=== PATIENT | male | born 1930 | race Caucasian/White ===

== ENCOUNTER 2020-09-02 17:37 | Inpatient (IN) | payer MEDICARE ==
[~2020-09-02 17:37] MED LIST: Iopamidol-370 76% 500 ML 1 ML ONE
[2020-09-02 18:26] LABS: Actual Bicarbonate (HCO3v) 22 mEq/L (22-28); Analyzer IN Cardio ER; Base Excess -0.2 mEq/L (-2.0 to +3.0); Calcium, Ionized (venous) 0.99 mmol/L (1.16-1.32); Chloride (VBG) 93 mmol/L (98-106); Hemoglobin (Hb) 15.8 g/dL (12.6-17.4); pH (venous) 7.49 (7.32-7.43)
[2020-09-02 18:29] LABS: #Basophils 0.1 thou/uL (0.0-0.2); #Lymphocytes 0.2 thou/uL (1.20-3.40); #Monocytes 0.6 thou/uL (0.11-0.59); %Basophils 1.3 % (0.0-1.0); %Eosinophils 0.1 % (0.0-10.0); %Lymphocytes 1.9 % (21.0-51.0); %Monocytes 5.2 % (0.0-10.0); %Neutrophils 91.5 % (42.0-75.0); Hemoglobin 14.9 g/dL (14.0-18.0); Mean Corpuscular HGB CONC 33.5 g/dL (32.0-36.0); Mean Corpuscular Hemoglobin 30.6 pg (27.0-31.0); Mean Corpuscular Volume 91.4 fL (78.0-98.0); Mean Platelet Volume 6.7 fL (7.4-10.4); Platelet Count 174 thou/uL (130-400); RBC Distribution Width 12.5 % (11.5-14.5); Red Blood Cell (RBC) Count 4.85 mill/uL (4.70-6.10)
[2020-09-02 18:36] LABS: INR-International Normal Ratio 1.3; Prothrombin Time 16.7 sec (12.0-14.7)
[2020-09-02 18:50] LABS: ALT (SGPT) 14 U/L (8-55); AST (SGOT) 23 U/L (5-34); Albumin 3.5 g/dL (3.4-4.8); Alkaline Phosphatase 56 U/L (40-110); Anion Gap 16 mmol/L (10-20); BUN (Urea Nitrogen) 24 mg/dL (8.4-25.7); Bilirubin, Total 1.7 mg/dL (0.2-1.2); Calc. Creatinine Clearance 0 mL/min (70-130); Calcium 8.1 mg/dL (7.8-10.44); Carbon Dioxide 19 mmol/L (23-31); Chloride 93 mmol/L (98-107); Globulin 2.9 g/dL (2.4-3.5); Glucose 113 mg/dL (83-110); Protein, Total 6.4 g/dL (5.8-8.1); Sodium 124 mmol/L (136-145)
[2020-09-02] MEDS ORDERED: Diltiazem 125 MG/25 ML ONE (19:17)
[2020-09-02] MEDS ORDERED: Cefepime 1 GM VIAL ONE ×2 (19:48→20:04)
[2020-09-02 19:50] LABS: Bacteria/HPF None Seen HPF (None Seen); Bilirubin Negative (Negative); Blood, Urine 1+ (Negative); Clarity Clear (Clear); Glucose, Urine (Dipstick) Normal (Negative); Ketone, Urine 20 mg/dL (Negative); Leukocyte Negative Leu/uL (Negative); Nitrite Negative (Negative); Protein, Urine (Dipstick) 100 mg/dL (Neg-Trace); RBC/HPF 0-3 HPF (0-3); Specific Gravity, Urine 1.027 (1.002-1.036); Squamous Epithelial 0-3 HPF (0-3); Urobilinogen 3 mg/dL (Less than 2); WBC/HPF 0-3 HPF (0-3)
[2020-09-02] MEDS ORDERED: Acetaminophen 500 MG TAB ONE (19:50)
[2020-09-02] MEDS ORDERED: cefTRIAXone\\ROCEPHIN 1 GM VIAL ONE (20:05)
[2020-09-02] MEDS ORDERED: Vancomycin 1 GM/200 ML BAG ONE (21:29)
[2020-09-02] MEDS ORDERED: Ondansetron PF 4 MG/2 ML Vial IVP PRN (21:36)
[2020-09-02] MEDS ORDERED: Acetaminophen 325 MG TAB PO PRN (21:36)
[2020-09-02] MEDS ORDERED: Ondansetron ODT 4 MG TAB PO PRN (21:36)
[2020-09-02 21:47] LABS: SARS-CoV-2 NAA Rapid Test Not Detected (NotDetected)
[2020-09-02 22:12] LABS: Troponin I 0.032 ng/mL (< 0.028)
[2020-09-02 23:08] LABS: Anion Gap 16 mmol/L (10-20); BUN (Urea Nitrogen) 23 mg/dL (8.4-25.7); Calc. Creatinine Clearance 0 mL/min (70-130); Calcium 7.5 mg/dL (7.8-10.44); Carbon Dioxide 18 mmol/L (23-31); Chloride 97 mmol/L (98-107); Glucose 110 mg/dL (83-110); Potassium 3.8 mmol/L (3.5-5.1); Sodium 127 mmol/L (136-145)
[2020-09-03 00:49] VITALS: BMI 30.7
[2020-09-03 01:26] LABS: Hemoglobin 14.6 g/dL (14.0-18.0); Mean Corpuscular HGB CONC 33.4 g/dL (32.0-36.0); Mean Corpuscular Hemoglobin 30.7 pg (27.0-31.0); Mean Platelet Volume 6.8 fL (7.4-10.4); Platelet Count 165 thou/uL (130-400); RBC Distribution Width 12.6 % (11.5-14.5); Red Blood Cell (RBC) Count 4.74 mill/uL (4.70-6.10); White Blood Cell (WBC) Count 9.5 thou/uL (4.8-10.8)
[2020-09-03 01:41] LABS: Band 8 % (5-11); Lymphocytes 6 % (21-51); MDiff Complete? YES; Monocytes 6 % (0-10); Neutrophil 80 % (42-75)
[2020-09-03] MEDS ORDERED: Furosemide 40 MG/4 ML VIAL SLOW IVP SCH ×2 (02:00→14:00)
[2020-09-03 02:16] LABS: Troponin I 0.037 ng/mL (< 0.028)
[2020-09-03 02:41] LABS: Anion Gap 17 mmol/L (10-20); BUN (Urea Nitrogen) 21 mg/dL (8.4-25.7); Calc. Creatinine Clearance 89 mL/min (70-130); Calcium 7.8 mg/dL (7.8-10.44); Carbon Dioxide 18 mmol/L (23-31); Chloride 96 mmol/L (98-107); Glucose 111 mg/dL (83-110); Potassium 3.8 mmol/L (3.5-5.1); Sodium 127 mmol/L (136-145)
[2020-09-03] MEDS ORDERED: Diltiazem HCl 125 MG, Admixture Fee 1 EACH in Sodium Chloride 0.9% 100 ML IVPB SCH ×2 (05:30→13:33)
[2020-09-03] MEDS: Carvedilol 6.25 MG TAB PO SCH (15:05)
[2020-09-03] MEDS: cefTRIAXone\\ROCEPHIN 1 GM in Sodium Chloride 0.9% 100 ML IVPB SCH (22:24)
[2020-09-04 05:04] LABS: Anion Gap 14 mmol/L (10-20); BUN (Urea Nitrogen) 25 mg/dL (8.4-25.7); Calc. Creatinine Clearance 89 mL/min (70-130); Calcium 7.7 mg/dL (7.8-10.44); Carbon Dioxide 24 mmol/L (23-31); Chloride 93 mmol/L (98-107); Glucose 112 mg/dL (83-110); Magnesium 1.8 mg/dL (1.6-2.6); Potassium 3.5 mmol/L (3.5-5.1); Sodium 127 mmol/L (136-145)
[2020-09-04 06:04] LABS: Band 20 % (5-11); Hemoglobin 14.2 g/dL (14.0-18.0); Lymphocytes 3 % (21-51); MDiff Complete? YES; Mean Corpuscular HGB CONC 33.8 g/dL (32.0-36.0); Mean Corpuscular Volume 91.7 fL (78.0-98.0); Mean Platelet Volume 7.2 fL (7.4-10.4); Monocytes 4 % (0-10); Neutrophil 73 % (42-75); Platelet Count 180 thou/uL (130-400); RBC Distribution Width 12.5 % (11.5-14.5); Red Blood Cell (RBC) Count 4.58 mill/uL (4.70-6.10); White Blood Cell (WBC) Count 10.5 thou/uL (4.8-10.8)
[2020-09-04] MEDS: Rivaroxaban 10 MG TAB PO SCH (08:33)
[2020-09-04] MEDS: Furosemide 40 MG/4 ML VIAL SLOW IVP SCH (08:33)
[2020-09-04] MEDS: Finasteride 5 MG TAB PO SCH (08:33)
[2020-09-04] MEDS: Carvedilol 6.25 MG TAB PO SCH (08:34)
[2020-09-04] MEDS: cefTRIAXone\\ROCEPHIN 1 GM in Sodium Chloride 0.9% 100 ML IVPB SCH (21:09)
[2020-09-05 04:56] LABS: Mean Corpuscular HGB CONC 33.3 g/dL (32.0-36.0); Mean Corpuscular Hemoglobin 30.4 pg (27.0-31.0); Mean Corpuscular Volume 91.2 fL (78.0-98.0); Mean Platelet Volume 6.7 fL (7.4-10.4); Platelet Count 184 thou/uL (130-400); RBC Distribution Width 12.5 % (11.5-14.5); Red Blood Cell (RBC) Count 4.94 mill/uL (4.70-6.10); White Blood Cell (WBC) Count 10.1 thou/uL (4.8-10.8)
[2020-09-05 05:20] LABS: Anion Gap 15 mmol/L (10-20); BUN (Urea Nitrogen) 23 mg/dL (8.4-25.7); Calc. Creatinine Clearance 94 mL/min (70-130); Calcium 7.6 mg/dL (7.8-10.44); Carbon Dioxide 22 mmol/L (23-31); Chloride 93 mmol/L (98-107); Glucose 84 mg/dL (83-110); Potassium 3.5 mmol/L (3.5-5.1); Sodium 126 mmol/L (136-145)
[2020-09-05 05:46] LABS: Band 15 % (5-11); Eosinophils 2 % (0-10); Lymphocytes 4 % (21-51); MDiff Complete? YES; Monocytes 7 % (0-10); Neutrophil 71 % (42-75); Reactive Lymphocytes 1 % (0-10)
[2020-09-05] MEDS: Furosemide 40 MG/4 ML VIAL SLOW IVP SCH (09:24)
[2020-09-05] MEDS: Finasteride 5 MG TAB PO SCH (09:29)
[2020-09-05] MEDS: Rivaroxaban 10 MG TAB PO SCH (09:37)
[2020-09-05] MEDS ORDERED: Rivaroxaban 10 MG TAB PO SCH (09:45)
[2020-09-05] MEDS: Cefdinir 300 MG CAP PO SCH (20:22)
[2020-09-05] MEDS: Doxycycline 100 MG CAP PO SCH (20:22)
[2020-09-06 04:43] LABS: Hemoglobin 14.7 g/dL (14.0-18.0); Mean Corpuscular HGB CONC 31.9 g/dL (32.0-36.0); Mean Corpuscular Volume 90.7 fL (78.0-98.0); Mean Platelet Volume 6.6 fL (7.4-10.4); Platelet Count 208 thou/uL (130-400); RBC Distribution Width 12.5 % (11.5-14.5); Red Blood Cell (RBC) Count 5.08 mill/uL (4.70-6.10)
[2020-09-06 05:04] LABS: Anion Gap 10 mmol/L (10-20); BUN (Urea Nitrogen) 20 mg/dL (8.4-25.7); Calc. Creatinine Clearance 101 mL/min (70-130); Calcium 7.6 mg/dL (7.8-10.44); Carbon Dioxide 27 mmol/L (23-31); Chloride 92 mmol/L (98-107); Glucose 93 mg/dL (83-110); Potassium 3.3 mmol/L (3.5-5.1); Sodium 126 mmol/L (136-145)
[2020-09-06] MEDS: Cefdinir 300 MG CAP PO SCH ×2 (08:28→21:12)
[2020-09-06] MEDS: Doxycycline 100 MG CAP PO SCH ×2 (08:28→21:12)
[2020-09-06] MEDS: Rivaroxaban 10 MG TAB PO SCH (08:29)
[2020-09-06] MEDS: Finasteride 5 MG TAB PO SCH (08:29)
[2020-09-06] MEDS ORDERED: Furosemide 20 MG TAB PO SCH (09:00)
[2020-09-06] MEDS ORDERED: Potassium Chloride 20 MEQ TAB PO SCH (09:00)
[2020-09-06] MEDS ORDERED: Sodium Chloride 0.9% 1,000 ML IV SCH (09:00)
[2020-09-06 18:50] LABS: Anion Gap 17 mmol/L (10-20); BUN (Urea Nitrogen) 17 mg/dL (8.4-25.7); Calc. Creatinine Clearance 103 mL/min (70-130); Calcium 7.6 mg/dL (7.8-10.44); Carbon Dioxide 15 mmol/L (23-31); Chloride 94 mmol/L (98-107); Glucose 82 mg/dL (83-110); Potassium 4.5 mmol/L (3.5-5.1); Sodium 121 mmol/L (136-145)
[2020-09-07 04:43] LABS: Anion Gap 10 mmol/L (10-20); BUN (Urea Nitrogen) 16 mg/dL (8.4-25.7); Calc. Creatinine Clearance 105 mL/min (70-130); Calcium 7.7 mg/dL (7.8-10.44); Carbon Dioxide 28 mmol/L (23-31); Chloride 94 mmol/L (98-107); Glucose 89 mg/dL (83-110); Potassium 3.7 mmol/L (3.5-5.1); Sodium 128 mmol/L (136-145)
[2020-09-07] MEDS: Cefdinir 300 MG CAP PO SCH (08:11)
[2020-09-07] MEDS: Finasteride 5 MG TAB PO SCH (08:11)
[2020-09-07] MEDS: Doxycycline 100 MG CAP PO SCH (08:11)
[2020-09-07] MEDS: Rivaroxaban 10 MG TAB PO SCH (08:12)
[2020-09-07 15:41] VITALS: BP 161/107; TEMP 98.5
== END 2020-09-07 17:00 | DRG 871 ==
LOC: ERS 17:37 → IMCU/EMU 20:35 → 2NO 09-03 12:33
PROVIDERS: ADMIT Student in an Organized Health Care Education/Training Program; ATTEND Internal Medicine
DX: A41.9 Sepsis, unspecified organism (principal); J69.0 Pneumonitis due to inhalation of food and vomit; I50.21 Acute systolic (congestive) heart failure; E87.1 Hypo-osmolality and hyponatremia; I48.21 Permanent atrial fibrillation; Z20.822 Contact with and (suspected) exposure to COVID-19; N40.0 Benign prostatic hyperplasia without lower urinary tract symptoms; Z96.651 Presence of right artificial knee joint; R77.8 Other specified abnormalities of plasma proteins; Z91.81 History of falling; Z79.01 Long term (current) use of anticoagulants; Z79.899 Other long term (current) drug therapy; Z85.828 Personal history of other malignant neoplasm of skin
CPT/HCPCS: 0240U; 36415; 70450; 71045; 74177; 80048; 80053; 81003; 81015; 82805; 83605; 83735; 83880; 84484; 85025; 85027; 85610; 85730; 87040; 87086; 93005; 93306; 96365; 96366; 96368; 96376; J0692; J0696; J1940; J3370; J3490; Q9967